=== PATIENT | female | born 1990 | race African-American/Black ===

== ENCOUNTER 2016-09-24 17:41 | Inpatient (IN) | payer OTHER ==
[~2016-09-24] VITALS: Ht 167.6 cm; Wt 79.8 kg
--- NOTE | 2016-09-24 18:48 | History & Physical ---
General Information and HPI MD Statement: I have seen and personally examined MAGALI THRASHER and documented this H&P. The patient is a 25 year old female at [39+4] weeks and [] days gestation who presented with a chief complaint of [srom]. Source of Information: patient Exam Limitations: no limitations History of Present Illness: 25 YEAR OLD @ 39+4 WEEKS PRESENTS W/ C/O LOSS OF MUCOUS PLUG THEN LOSS OF FLUID TODAY. ?GREENISH FLUID NOTED. REMARKABLE FOR H/O SICKLE CELL TRAIT BUT FOB TESTED NEGATIVE. 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 EENTM: Reports: no symptoms. Cardiovascular: Reports: no symptoms. Respiratory: Reports: no symptoms. GI: Reports: no symptoms. Genitourinary: Reports: no symptoms. Musculoskeletal: Reports: no symptoms. Skin: Reports: no symptoms. Neurological/Psychological: Reports: no symptoms. Hematologic/Endocrine: Reports: no symptoms. Immunologic/Allergic: Reports: no symptoms. All Other Systems: Reviewed and Negative Exam & Diagnostic Data Obstetric Exam Wgt Gained During : 30 Pelvimetry: ADEQUATE Dilation (cm): 0 Effacement (%): 0 Station: 0 Membranes: SROM Fluid: light meconium Fundal Height (cm): 40 Multiple Gestation? No Contractions: Q3-4CM Infant #1 - FHR Baseline: 140 Category: 1 Estimated Weight: 7LBS (6'1" ON 09/02/2016) Presentation: VTX Patient for Induction? No Physical Exam General Appearance Alert, Oriented X3, Cooperative, No Acute Distress Skin No Rashes, No Breakdown, No Significant Lesion HEENT Atraumatic, PERRLA, EOMI Cardiovascular Regular Rate, Normal S1, No Murmurs Lungs Clear to Auscultation, Normal Air Movement Abdomen GRAVID Neurological Normal Gait Extremities No Clubbing Vascular Normal Pulses Reproductive (FEMALE) Normal female genitalia Labs Blood Type & Rh: o POS Antibody Screen: NEG Hct/Hgb & Platelets #1: 11.5 33.6 276 Hct/Hgb & Platelets #2: 11.6 36.3 263 Rubella: IMM VDRL #1: NEG VDRL #2: NEG HbsAg: NEG HIV #1: NEG HIV #2 NEG 1 Hr P Group B Strep: POS Initial Ultrasound: 13+3, S=D, Anatomy Ultrasound: UNREMARKABLE ANATOMY Ultrasound for EFW: 35%, 6'1" 09/02 Genetic Testing: NEG FIRST TRIMESTER SCREEN, CF, +SICKLE CELL TRAIT. FOB NEG Assessment/Plan Assessment/Plan: 25 YEAR OLD @ 39+4 WEEKS SROM, +MEC. PT IN EARLY LABOR.FHR REASSURING +GBS. WILL START GBS PROPHYLAXIS AND ACTIVE MANAGEMENT OF LABOR. PITOCIN/EPIDURAL PRN. As Ranked By This Provider Problem List: 1. Core Measures/Miscellaneous Venous Thromboembolism VTE Risk Factors: / VTE Contraindications: No Contraindications VTE Diagnosis: No Beta Westley Is Beta Westley a Home Med? No Antibiotics Is Patient on Antibiotics? No
[2016-09-24 19:02] LABS: ABSOLUTE BASOPHIL COUNT 0 /CUMM (0.0-0.2); ABSOLUTE EOSINOPHIL COUNT 0 /CUMM (0.0-0.7); ABSOLUTE GRANULOCYTE CT 7.3 /CUMM (1.4-6.5); ABSOLUTE LYMPH COUNT 1.4 /CUMM (1.2-3.4); BASOPHIL % 0.3 % (0.0-2.0); EOSINOPHIL % 0.2 % (0-5); HEMATOCRIT 37.8 % (37-47); MEAN CORPUSCULAR HGB 27.6 PG (27.0-31.0); MEAN CORPUSCULAR HGB CONC 33.3 G/DL (33.0-37.0); MEAN CORPUSCULAR VOLUME 82.7 FL (81.0-99.0); MEAN PLATELET VOLUME 7.4 FL (7.4-10.4); PLATELET COUNT 237 /CUMM (130-400); RBC DISTRIBUTION WIDTH 13.2 % (11.5-14.5); RED BLOOD CELL CT 4.57 /CUMM (4.20-5.40); WHITE BLOOD CELL COUNT 9.8 /CUMM (4.8-10.8)
[2016-09-24 21:57] VITALS: BP 146/74
--- NOTE | 2016-09-25 09:21 | PN- OBGYN ---
Surgical Brief Attending Note Brief Attending Note: Doing well - is a little worried about the meconium stained amniotic fluid. No headaches, no visual changes no RUQ pain. RN reported that pt's cx @ 4 cm overnight Afebrile vss But BP's seem mildly elevated @ 142/89 143/83 (in preg was 110-120 /60 - 78) Pt on PCN Protocal for GR B Str + Abd benign nontender contxns Q 4 to 5 min mild to mod FHR Baseline since admission 150's avge variability CX thickened / swollen 4 cm 0 to -1 station IUPC Placed- irreg inadequate contractions several issues 1.) elevated BP - ck pih panel and urine IL/CR ratio 2.) dysfunctional labor pattern IUPC in place - Pitocin protocal follow closely 3.) elevated baseline FHR IVF bolus - mat positional changes follow closely Ruthie Davies
[2016-09-25 11:48] LABS: ABSOLUTE BASOPHIL COUNT 0 /CUMM (0.0-0.2); ABSOLUTE EOSINOPHIL COUNT 0 /CUMM (0.0-0.7); ABSOLUTE GRANULOCYTE CT 8.7 /CUMM (1.4-6.5); ABSOLUTE LYMPH COUNT 1.4 /CUMM (1.2-3.4); BASOPHIL % 0.3 % (0.0-2.0); EOSINOPHIL % 0 % (0-5); GRANULOCYTE % 78.2 % (42.2-75.2); HEMATOCRIT 37.5 % (37-47); MEAN CORPUSCULAR HGB 27.5 PG (27.0-31.0); MEAN CORPUSCULAR HGB CONC 33.9 G/DL (33.0-37.0); MEAN CORPUSCULAR VOLUME 80.9 FL (81.0-99.0); MEAN PLATELET VOLUME 7.7 FL (7.4-10.4); PLATELET COUNT 223 /CUMM (130-400); RBC DISTRIBUTION WIDTH 13.5 % (11.5-14.5); RED BLOOD CELL CT 4.64 /CUMM (4.20-5.40); WHITE BLOOD CELL COUNT 11.1 /CUMM (4.8-10.8)
--- NOTE | 2016-09-25 18:47 | PN- OBGYN ---
Surgical Brief Attending Note Brief Attending Note: Since admission: FHR in the 150"s with average variabily. At limited intervals FHR has risen to 160's with avge variabilty. Pt has only had a single low grade temp elevation of 100.1 late morning- this responded toa single dose of IV acetominophen. Recheck @ midmorning, pt's cervix remained 4 cm but was becoming swollen. IUPC was placed and contraction were noted to be inadequate, therefore IV pitocin augmentation was initiated and then continued through out the day. The pt has an epidural that at times has needed to be retopped. Pt has had continued progress with cervical change throughout the day. Most recent exam @ 6 pm pt was now 9 cm but now an elongated anterior cervical lip. VTX @ 0 station. @ this time pt had little relief from her epidural, pt is bearing down with her discomfort. Anesthesia was called to retop and possible replace the epidural catherter FHR now in the 140's with average variability and accells noted with vaginal exams. Plan is for pt to become more comfortable, maintain contraction pattern of 3 in 10 minutes, follow FHR closely, dana pt in 2 hrs. dana sooner if pt c/o rectal pressure or changes noted in FHR pattern Ed Davies MD
--- NOTE | 2016-09-26 00:11 | Labor & Delivery Summary ---
Delivery Summary Vaginal Delivery: Vaginal: SPONTANEOUS VERTEX Episiotomy/Lacerations: Episiotomy/Lacerations: EPISIOTOMY Type: 2ND DEGREE Repair: 3 - VICRYL Anesthesia: LOCAL + EPIDURAL Placenta: Placenta: spontanteous, normal, 3 vessel Anesthesia: EPIDURAL X TWO (REDONE @ 18:00 09/25/2016 Cord PH Value: 7.36 Baby's Weight: 6#6 2890 BABY GIRL SHAWNA Apgars - 1 Min: 8 Apgars - 5 Min: 9 Additional Comments: PT MADE SLOW PROGRESSION THROUGHOUT THE DAY WITH PITOCIN AUGMENTATION. /IUPC 09/24/2016 SROM @ 17:05 OF MECONIUM STAINED FLUID 09/24/2016 18:52 1 TO 2 CM 09/24/2016 22:21 3 CM 09/25/2016: 03:22 3 CM 04:00 EPIDURAL PLACED 08:04 4 CM @ 08:30 4 CM BUT SWOLLEN CX- IUPC PLACED- INADEQUATE CONTRACTIONS PITOCIN AUGMENTATION STARTED 11:00 5 cm 12:53 6 cm 15:13 8 CM @ 18:10 +++ PAIN- EPIDURAL BOLUSED X 4 BY THEN- SECOND EPIDURAL WAS PLACED. FINALLY 9 CM @ 17:50 ANT LIP @ 20:36 ANT LIP @ 21:23 (PT WITH +++ RECTAL PRESSURE SO ALLOWED TO START PUSHING - vtx @ 0 station) FULLY @ 21:41 PT PROGRESSED WELL WITH PUSHING BUT CONTRACTIONS REMAINED Q 3 TO 5 MINUTES, DESPITE INCREASING DOSAGE OF PITOCIN. PERSISTENT WITH TIGHT INTROITAL BAND OF TISSUE X 5 CONTRACTIONS - PT CRYING TO "GET THE HEAD OUT" AND AGREED TO SMALL EPISIOTOMY. SMALL EPISIOTOMY MADE IN MIDLINE AND WITH NEXT CONTRACTION 22:24, LV FEMALE. LT HAND AND A LOOP OF CORD UNDER THE CHIN, NO SHOULDER DYSTOCIA. REST OF EASILY DELIVERED. PEDI DR JOSEPH WAS PRESENT. VIGOROUS FEMALE "SHAWNA" 6#6oz 2890 gms. 8/9/9. PH 7.36 PERINEUM 2ND DEGREE LACERATION. 22:30 PLACENTA SPONTANEOUSLY DELIVERED INTACT NL CONFIGURATION 3 VC EPISIOTOMY / LACERATION REPAIRED IN LAYERS BIMANUAL EXAM- BOGGY LOW SEGMENT W/ 75 ML CLOT IN LOW SEGMENT IV PITOCIN/ IM METHERGINE STR CATH OF 100 ML URINE SPONGE NEEDLE COUNT CORRECT BY COUNT / ELECTRONIC SCAN EBL 400 ML
--- NOTE | 2016-09-26 10:17 | PN- Post Delivery/GYN ---
Subjective Subjective: doing well Review of Systems Constitutional: Reports: no symptoms. Objective Last 24 Hrs of Vital Signs/I&O vss Vital Signs Date Time Temp Pulse Resp B/P B/P Pulse O2 O2 Flow FiO2 Mean Ox Delivery Rate 09/26 1999 99.5 09/25 1900 99.7 09/25 1145 100.1 Physical Exam General Appearance Alert, Oriented X3, Cooperative, No Acute Distress Cardiovascular Regular Rate Lungs Clear to Auscultation Last 24 Hrs of Labs/Kj: Laboratory Tests 09/26/16 0750: CBC w Diff Pending, WBC Pending, RBC Pending, Hgb Pending, Hct Pending, MCV Pending, MCH Pending, RDW Pending, Plt Count Pending, MPV Pending, PUBS MCHC Pending Assessment/Plan Assessment/Plan ppd #1 vss afebrile Problem List: 1. Attending MD Review Statement Attending Statement Attending MD Statement: examined this patient, discussed with family, discussed with nursing
[2016-09-26 11:11] LABS: ABSOLUTE BASOPHIL COUNT 0 /CUMM (0.0-0.2); ABSOLUTE EOSINOPHIL COUNT 0 /CUMM (0.0-0.7); ABSOLUTE GRANULOCYTE CT 15.6 /CUMM (1.4-6.5); EOSINOPHIL % 0.2 % (0-5)
[2016-09-26 11:34] LABS: ABSOLUTE LYMPH COUNT 2.1 /CUMM (1.2-3.4); ABSOLUTE MONOCYTE COUNT 1.6 /CUMM (0.10-0.60); BASOPHIL % 0.1 % (0.0-2.0); GRANULOCYTE % 80.2 % (42.2-75.2); HEMATOCRIT 35.4 % (37-47); MEAN CORPUSCULAR HGB 27.7 PG (27.0-31.0); MEAN CORPUSCULAR HGB CONC 33.4 G/DL (33.0-37.0); MEAN PLATELET VOLUME 7.8 FL (7.4-10.4); PLATELET COUNT 209 /CUMM (130-400); RBC DISTRIBUTION WIDTH 13.5 % (11.5-14.5); RED BLOOD CELL CT 4.26 /CUMM (4.20-5.40)
[2016-09-26 11:35] LABS: WHITE BLOOD CELL COUNT 19.5 /CUMM (4.8-10.8)
[2016-09-27] MEDS ORDERED: PRENATAL TABLE1 EAC2 PO (00:45)
[2016-09-27] MEDS ORDERED: IBUPROFEN800 M1 PO (00:45)
--- NOTE | 2016-09-27 11:49 | PN- Post Delivery/GYN ---
Subjective Subjective: happy with her experience ready for D/C home Review of Systems: neg for Cardiac Pulmonary GI complaints Objective Last 24 Hrs of Vital Signs/I&O Afebrile VSS Physical Exam General Appearance Alert, Oriented X3, Cooperative, No Acute Distress Skin No Significant Lesion Cardiovascular Regular Rate Lungs Normal Air Movement Abdomen Normal Bowel Sounds, Soft, No Tenderness, No Hepatospenomegaly, Fundus firm midline nontender 3 FB below umbilicus Neurological Normal Gait, Normal Speech Extremities No Tenderness/Swelling Reproductive (FEMALE) Normal female genitalia, avge lochia Current Medications: Current Medications Sig/Thomas Start time Last Medication Dose Route Stop Time Status Admin Docusate Sodium 100 MG BID 09/25 2336 DCD 09/26 PO 1151 Hydroxyzine HCl 100 MG AT BEDTIME NEED.. 09/25 2345 DCD PO Ibuprofen 800 MG .STK-MED ONE 09/26 1847 DC PO 09/26 1848 Ibuprofen 800 MG Q6P PRN 09/25 2345 DCD 09/27 PO 0738 Magnesium Hydroxide 30 ML DAILY PRN 09/25 2345 DCD PO Oxycodone/ 1 TAB Q3P PRN 09/25 2345 DCD Acetaminophen PO Assessment/Plan Assessment/Plan Stable PPD #2 Ready for discharge Plan discharge home f/up 2/ 6 wks PP. PP instructions reviewed, PT and family understand Ed Davies MD Problem List: 1. 2. Term of female 3. Prolonged rupture of membranes, delivered 4. Normal spontaneous vaginal delivery Gurmeet CORREA Review Statement Attending Statement Gurmete CORREA Statement: examined this patient, discussed with family, reviewed EMR data (avail), discussed with nursing
== END 2016-09-27 11:05 | DRG 775 ==
LOC: CBCO 17:41 → GNO 17:57
PROVIDERS: Obstetrics & Gynecology; ADMIT Obstetrics & Gynecology
PROC: 0KQM0ZZ Repair Perineum Muscle, Open Approach (ICD-10-PCS; principal; 2016-09-25)
PROC: 10E0XZZ Delivery of Products of Conception, External Approach (ICD-10-PCS; principal; 2016-09-25)
PROC: 10H07YZ Insertion of Other Device into Products of Conception, Via Natural or Artificial Opening (ICD-10-PCS; 2016-09-25)
DX: O70.1 Second degree perineal laceration during delivery (principal); Z37.0 Single live birth; O99.824 Streptococcus B carrier state complicating childbirth; Z3A.39 39 weeks gestation of pregnancy; O62.9 Abnormality of forces of labor, unspecified; O42.02 Full-term premature rupture of membranes, onset of labor within 24 hours of rupture
CPT/HCPCS: GNOS; 81001; 82570; 87086; 88307; J0131; J0595; J1885; J2210; J7120